=== PATIENT | male | born 1965 | race Caucasian/White ===

== ENCOUNTER 2019-10-03 08:52 | Observation (INO) ==
[2019-10-03] MEDS ORDERED: NS 1,000 ML IV PRN (09:09)
--- NOTE | 2019-10-03 09:33 | Diag Imaging Result Doc PS360 ---
EXAM: CHEST-PORTABLE 10/03/2019 HISTORY: stroke like symptoms TECHNIQUE: AP portable upright at 0916 COMMENT: There is no evidence of acute cardiac or pulmonary disease. There are no previous studies. IMPRESSION: No evidence of acute disease. Electronically signed by Floyd Saba 10/03/2019 9:31 AM
--- NOTE | 2019-10-03 09:36 | Diag Imaging Result Doc PS360 ---
EXAM: CT HEAD W/O CONTRAST 10/03/2019 HISTORY: stroke like symptoms TECHNIQUE: This exam was performed using automated exposure control, adjustment of mA or kV according to patient size, and/or use of iterative reconstruction technique. COMMENT: There is no evidence of mass effect, bleed, or abnormal extra-axial fluid collection. The calvarium is intact. The visualized paranasal sinuses are clear. There is a prominent cisterna magna. IMPRESSION: No evidence of acute intracranial disease. Electronically signed by Floyd Saba 10/03/2019 9:34 AM
--- NOTE | 2019-10-03 09:38 | EKG Report ---
Test Performed on : 10/03/2019 09:04:14 AM Test Reason : HIGH BP/NUMBNESS AND TINGLING Blood Pressure : / mmHG Vent. Rate : 058 BPM Atrial Rate : 058 BPM P-R Int : 144 ms QRS Dur : 080 ms QT Int : 396 ms P-R-T Axes : -09 006 020 degrees QTc Int : 388 ms Sinus bradycardia. Nonspecific T wave abnormality Abnormal ECG No previous ECGs available Unconfirmed Result
[2019-10-03] MEDS ORDERED: ASPIRIN PO ONE (09:41)
[2019-10-03] MEDS ORDERED: LABETALOL IV ONE (09:42)
[2019-10-03 09:53] LABS: URINE SOURCE CLEAN CATCH
[2019-10-03 09:56] LABS: BASO# 0.05 X1000 (0.0-0.2); BASO% 0.7 % (0.0-0.8); EOS# 0.07 X1000 (0.0-0.7); EOS% 0.9 % (0.0-10.0); HEMATOCRIT 44.3 % (42.0-52.0); HEMOGLOBIN 15.2 g/dL (14.0-18.0); LYMPH# 2.01 X1000 (1.2-3.4); LYMPH% 26.6 % (20.5-51.1); MCH 31.7 PG (27-31); MCHC 34.3 g/dL (33-37); MCV 92.3 FL (81-99); MONO# 0.36 X1000 (0.11-0.59); MONO% 4.8 % (1.7-9.3); MPV 10.3 FL (7.4-10.4); NEUT# 5.07 X1000 (1.4-6.5); PLT 221 X1000 (130-400); RDW 12.1 % (11.5-14.5); WBC 7.56 X1000 (4.8-10.8)
[2019-10-03 09:57] LABS: BILIRUBIN URINE NEGATIVE (NEGATIVE); BLOOD URINE NEGATIVE (NEGATIVE); COLOR YELLOW; GLUCOSE URINE NEGATIVE (NEGATIVE); KETONE URINE NEGATIVE (NEGATIVE); LEUKOCYTES URINE NEGATIVE (NEGATIVE); NITRITE URINE NEGATIVE (NEGATIVE); PROTEIN URINE NEGATIVE (NEGATIVE); SP GRAVITY URINE 1.014; TURBIDITY URINE CLEAR (CLEAR); UR EPITHELIAL CELLS <10 /HPF (<10); URINE BACTERIA NEGATIVE /HPF; URINE RBC <10 /HPF (<10); URINE WBC <10 /HPF (<10); UROBILINOGEN URINE NORMAL (NORMAL)
[2019-10-03 10:04] LABS: INR 0.85; PROTIME 11.7 Seconds (11.0-16.0)
[2019-10-03 10:24] LABS: AGAP 12; ALB/GLOB RATIO 2.6; ALBUMIN 4.6 g/dL (3.5-5.0); ALKALINE PHOSPHATASE 60 U/L (32-122); BUN 17 mg/dL (8-22); CALCIUM 9.1 mg/dL (8.8-10.2); CHLORIDE 103 mmol/L (98-107); COSMO 282; CREATININE 1.2 mg/dL (0.7-1.2); ESTIMATED GFR > 60; GLUCOSE 112 mg/dL (70-104); GOT 18 U/L (10-34); GPT 22 U/L (10-44); POTASSIUM 4.1 mmol/L (3.5-5.1); SODIUM 140 mmol/L (136-145); TCO2 25 mmol/L (25-35); TOTAL BILIRUBIN 0.56 mg/dL (0.20-1.00); TOTAL PROTEIN 6.4 g/dL (6.3-8.3)
[2019-10-03] MEDS ORDERED: CATAPRES PO ONE (10:37)
--- NOTE | 2019-10-03 11:02 | PROVIDER DOCUMENTATION ---
This chart was entered by Erna Vasques Scribe, acting as scribe for Rasheed Fang MD. HPI-Neurological Disorder - General Stated Complaint: HIGH BP Time Seen by Provider: 10/03/19 08:53 Source: patient Allergies/Adverse Reactions: Patient Allergies Allergy/AdvReac Type Severity Reaction Status Date / Time No Known Allergies Allergy Verified 04/09/19 06:59 Home Medications: Home Medication List Medication Instructions Recorded Confirmed Last Taken Type Losartan Potassium 1 tab PO DAILY 10/03/19 10/03/19 Unknown History - History of Present Illness-Neuro Nature of Presenting Problem: Patient is a 54 year old male who presents with stroke like symptoms. States having dizziness and weakness to RUE and RLE. Reports symptoms started 2 hours ago. States was informed by his PCP's office this morning that his blood pressu re was elevated. Denies chest pain and shortness of breath. Reports taking Lila yesterday. Severity: reports: mild Onset/Duration: reports: 1-3 hours ago (2 hours ago) Timing: reports: still present Context: reports: other (weakness) Character of Deficits: reports: new weakness New weakness or altered sensation location:: reports: RUE, RLE Associated Symptoms: reports: dizziness Similar Symptoms Previously?: No Recently seen or treated by another doctor?: Yes Review of Systems - Adult - REVIEW OF SYSTEMS - ADULT Constitutional: reports: no symptoms reported Eyes: reports: no symptoms reported Ears, Nose, Mouth & Throat: reports: no symptoms reported Cardiovascular: reports: no symptoms reported. denies: chest pain Respiratory: reports: no symptoms reported. denies: shortness of breath Gastrointestinal: reports: no symptoms reported Genitourinary: reports: no symptoms reported Musculoskeletal: reports: no symptoms reported Integumentary: reports: no symptoms reported Neurological: reports: see HPI, dizziness/vertigo (dizziness), other (weakness to RUE and RLE). denies: numbness Psychiatric: reports: no symptoms reported Endocrine: reports: no symptoms reported Hematologic/Lymphatic: reports: no symptoms reported Allergic/Immunologic: reports: no symptoms reported All Other Systems: Reviewed and Negative Past History - Adult - PAST MEDICAL HISTORY-ADULT Review of Records: reports: Old Records Reviewed, Nursing Assessment Review, Medications Reviewed, Social history reviewed & non-contributory. Major Childhood Illnesses: reports: denies history Cardiovascular: reports: HTN, hyperlipidemia Respiratory: reports: denies history Gastrointestinal: reports: denies history Obstetrical/Gynecological: reports: denies history Genitourinary: reports: kidney stones Musculoskeletal: reports: denies history Neurological: reports: denies history Endocrine/Immune: reports: denies history Other Conditions: reports: denies history - PRIOR SURGERIES/PROCEDURES Surgical/Procedure History: reports: reviewed, not pertinent, tonsillectomy, hernia repair, orthopedic (extremity) - IMMUNIZATION STATUS Childhood Immunizations: See Nurse Assessment Flu Vaccine: See Nurse Assessment - FAMILY HISTORY Family History: reviewed, not pertinent - SOCIAL HISTORY Smoking: denies Substance Use: denies Physical Exam- Neurological - Physical Exam-Neuro Initial Vital Signs Reviewed: Yes General Appearance: alert, no apparent distress. 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 negative: facial droop Integumentary: normal color, normal turgor, warm/dry. negative: diaphoresis, pallor Psych/Mental Status: normal mood/affect, normal thought content, normal thought process, oriented x 3. negative: tearful Progress - PLAN OF CARE/RESULTS Progress/Plan/Lab Results: Vital Signs - 8 hr 10/03/19 09:14 10/03/19 10:01 10/03/19 10:35 Temperature 98.2 F Pulse Rate 62 65 57 L Respiratory Rate 16 17 19 Blood Pressure 204/99 202/86 221/112 O2 Sat by Pulse Oximetry 98 97 97 Laboratory Results - last 24 hr 10/03/19 10/03/19 10/03/19 09:41 09:42 09:45 WBC RBC Hgb Hct MCV MCH MCHC RDW Std Deviation Plt Count MPV Immature Gran % (Auto) Neut % (Auto) Lymph % (Auto) [place] % (Auto) Eos % (Auto) Baso % (Auto) Immature Gran # (Auto) Neut # (Auto) Lymph # (Auto) [place] # (Auto) Eos # (Auto) Baso # (Auto) PT INR PTT (Actin FS) Sodium 140 Potassium 4.1 Chloride 103 Carbon Dioxide 25 Anion Gap 12 BUN 17 Creatinine 1.2 Estimated GFR/1.73 m2 > 60 BUN/Creatinine Ratio 14 Glucose 112 H POC Glucose 101 Calculated Osmolality 282 Calcium 9.1 Total Bilirubin 0.56 AST 18 ALT 22 Alkaline Phosphatase 60 Troponin T High Sens Total Protein 6.4 Albumin 4.6 Globulin 1.8 Albumin/Globulin Ratio 2.6 Urine Source CLEAN CATCH Urine Color YELLOW Urine Turbidity CLEAR Urine pH 6.0 Ur Specific [place] 1.014 Urine Protein NEGATIVE Ur Glucose (Stick) NEGATIVE Ur Ketones (Stick) NEGATIVE Urine Blood NEGATIVE Urine Nitrite NEGATIVE Urine Bilirubin NEGATIVE Urobilinogen Dipstick NORMAL Urine Leukocytes NEGATIVE Urine WBC (Auto) <10 Urine RBC (Auto) <10 U Epithel Cells (Auto) <10 Urine Bacteria (Auto) NEGATIVE 10/03/19 10/03/19 10/03/19 09:45 09:45 09:45 WBC 7.56 RBC 4.80 Hgb 15.2 Hct 44.3 MCV 92.3 MCH 31.7 H MCHC 34.3 RDW Std Deviation 12.1 Plt Count 221 MPV 10.3 Immature Gran % (Auto) 0.0 Neut % (Auto) 67.0 Lymph % (Auto) 26.6 [place] % (Auto) 4.8 Eos % (Auto) 0.9 Baso % (Auto) 0.7 Immature Gran # (Auto) 0.00 Neut # (Auto) 5.07 Lymph # (Auto) 2.01 [place] # (Auto) 0.36 Eos # (Auto) 0.07 Baso # (Auto) 0.05 PT 11.7 INR 0.85 PTT (Actin FS) 29.0 Sodium Potassium Chloride Carbon Dioxide Anion Gap BUN Creatinine Estimated GFR/1.73 m2 BUN/Creatinine Ratio Glucose POC Glucose Calculated Osmolality Calcium Total Bilirubin AST ALT Alkaline Phosphatase Troponin T High Sens 9 Total Protein Albumin Globulin Albumin/Globulin Ratio Urine Source Urine Color Urine Turbidity Urine pH Ur Specific [place] Urine Protein Ur Glucose (Stick) Ur Ketones (Stick) Urine Blood Urine Nitrite Urine Bilirubin Urobilinogen Dipstick Urine Leukocytes Urine WBC (Auto) Urine RBC (Auto) U Epithel Cells (Auto) Urine Bacteria (Auto) Orders Category Date Time Status Admit - [facility] Routine AdmDCTranf 10/03/19 10:56 Active Call Admitting on Arrival AT ADMISSION Care 10/03/19 10:56 Active Cardiac Monitoring DIRECTED Care 10/03/19 09:09 Active Finger Stick Blood Sugar (ED) DIRECTED Care 10/03/19 09:09 Active Misc. NRSG Communication Order DIRECTED Care 10/03/19 09:09 Active Nursing- MD Consult Request NOW Care 10/03/19 10:55 Active Saline Loc NOW Care 10/03/19 09:09 Active Z-Document. for Tele Applied ORDERED Care 10/03/19 10:57 Active CHEST-PORTABLE [RAD] Stat Exams 10/03/19 09:[address] HEAD W/O CONTRAST [CT] Stat Exams 10/03/19 09:09 Completed CBC WITH ELECTRONIC DIFF [HEME] Stat Lab 10/03/19 09:45 Completed COMPREHENSIVE METABOLIC PANEL [CHEM] Stat Lab 10/03/19 09:45 Completed PROTIME WITH INR [COAG] Stat Lab 10/03/19 09:45 Completed PTT [COAG] Stat Lab 10/03/19 09:45 Completed TROPONIN T HIGH SENSITIVITY Stat Lab 10/03/19 09:45 Completed URINALYSIS W/POSS RFLX CULT [URINALYSIS] Stat Lab 10/03/19 09:41 Completed URINE DRUG SCREEN Stat Lab 10/03/19 09:41 Received 0.9% Sodium Chloride Inj [Ns] 1,000 ml Med 10/03/19 09:09 Active IV 100 mls/hr Aspirin Med 10/03/19 09:41 Discontinued 325 mg PO NOW ONE Clonidine [Catapres] Med 10/03/19 10:37 Discontinued 0.2 mg PO NOW ONE Labetalol Med 10/03/19 09:42 Discontinued 20 mg IV NOW ONE Telemetry [OM.EQ] Routine Oth 10/03/19 10:56 Active EKG [EKG] Stat Ther 10/03/19 09:02 Draft Transfer/Admit Order [TRANSFER] Routine Transfer 10/03/19 10:57 Ordered Result Diagrams: 10/03/19 09:45 10/03/19 09:45 - EKG 1 Time of EKG reading by physician:: 09:04 EKG Read and Signed by:: Rasheed Fang EKG Interpretation (*Must complete 3 of following elements*): Abnormal Rate: 58 Rhythm: sinus bradycardia [place]: normal VT Interval: normal Comments: nonspecific T wave abnormality. - XRAY 1 XRAY Study: Chest Impression: See EMR Report (EXAM: CHEST-PORTABLE 10/03/2019 HISTORY: stroke like symptoms TECHNIQUE: AP portable upright at 0916 COMMENT: There is no evidence of acute cardiac or pulmonary disease. There are no previous studies. IMPRESSION: No evidence of acute disease. Electronically signed by Floyd Saba 10/03/2019 9:31 AM 10/03/19 0931 Interpreting Physician: Floyd Saba MD Dictated Date/Time: 10/03/19 0930 cc: Rasheed Fang MD; Lucho Aguilar MD) - CT/MRI 1 CT Study: Head Impression: See EMR Report ( EXAM: CT HEAD W/O CONTRAST 10/03/2019 HISTORY: stroke like symptoms TECHNIQUE: This exam was performed using automated exposure control, adjustment of mA or kV according to patient size, and/or use of iterative reconstruction technique. COMMENT: There is no evidence of mass effect, bleed, or abnormal extra-axial fluid collection. The calvarium is intact. The visualized paranasal sinuses are clear. There is a prominent cisterna magna. IMPRESSION: No evidence of acute intracranial disease. Electronically signed by Floyd Saba 10/03/2019 9:34 AM 10/03/19 0934 Interpreting Physician: Floyd Saba MD Dictated Date/Time: 10/03/19 0933 cc: Rasheed Fang MD; Lucho Aguilar MD) - CONSULTS/PCP/HOSPITALIST Notification #1 *Consult/PCP/Hospitalist*: Dr. Aguilar paged at [phone] Time Discussed: 10:52 Reason/Comments: Dr. Fang consulted with Dr. Aguilar about patient. Consult Disposition: Will see in ED, Admit Departure - Departure Date of Disposition Decision: 10/03/19 Time of Disposition Decision: 10:26 DIAGNOSIS: CVA (cerebral vascular accident), Uncontrolled hypertension Disposition: ADMITTED INPATIENT 09 Certified Medical Emergency: Emergent Condition: Stable Referrals and Follow-Ups: Lucho Aguilar MD [Primary Care Provider] - - Critical Care Note This patient required my direct & personal management of CC.: Yes Total Time (mins): 45 Critical Care Statement: This patient required my direct personal management to treat or rule out processes, the absence of which, could potentiallly result in sudden, clinically significant life or limb threatening deterioration. Attestation - Physician/ BENSON Attestation Patient care was provided by Advanced Practice Provider:: No The physician spent face to face time with patient:: Yes Advanced Practice Provider documentation review:: Supervising physician onsite and consulted in the evaluation and care of this patient. The physician did have a face to face encounter with the patient. - NIH Stroke Scale Level of Consciousness: 0-Alert LOC Questions (ask month and age): 0-Answers Both Correctly LOC Commands (ask to open & close eyes;make a fist, let go): 0-Obeys Both Correctly Best Gaze (horizontal eye movement): 0-Normal Visual (use finger movement, counting or visual threat): 0-No Visual Loss Facial Palsy (show teeth or raise eyebrows & close eyes tght: 0-Symmetrical Movement Motor Function-left arm: 0-Normal Motor Function-right arm: 0-Normal Motor Function-left le-Normal Motor Function-right le-Normal Limb Ataxia([id number], or heel to olmedo): 0-No Ataxia Sensory(pin prick to face,arms,trunk,legs-compare side/side): 0-No Ataxia Best Language(name item/read sentence.Ex-Down to Earth): 0-No Aphasia Dysarthria(Pt read words or say words Ex.Mama,Tip-Top,Thanks: 0-Normal Articulation Extinction and Inattention: 0-Normal Stroke tPA Guidelines - Exclusion Criteria for IV tPA Repeated systolic Blood Pressure >185 or Diastolic >110: Yes (NOT CANDIDATE FOR TPA DUE TO NIH=O AND UNCONTROLLED BP. DISCUSSED WITH DR AGUILAR) This chart was documented by the indicated scribe, (Erna Vasques Scribe) and accurately reflects the services I performed and decisions made by me, Rasheed Fang MD, as attested by the provider's signature.
[2019-10-03 11:08] LABS: UR AMPHETAMINES QUAL NONE DETECTED (NONE DETECT); UR BARBITUATES QUAL NONE DETECTED (NONE DETECT); UR BENZODIAZEPIN QUAL NONE DETECTED (NONE DETECT); UR CANNABINOIDS QUAL NONE DETECTED (NONE DETECT); UR COCAINE QUAL NONE DETECTED (NONE DETECT); UR METHADONE QUAL NONE DETECTED (NONE DETECT); UR OPIATES QUAL NONE DETECTED (NONE DETECT); UR OXYCODONE QUAL NONE DETECTED (NONE DETECT); UR PCP QUAL NONE DETECTED (NONE DETECT)
--- NOTE | 2019-10-03 14:56 | NEUROLOGY CONSULTATION ---
DATE: 10/03/2019 Mr. Ramirez is 54 years old and there is question of stroke. History from the patient is that he noticed some dizziness and unsteady gait late in the day yesterday. At one point, he noticed clumsiness in the right arm more than other limbs. There may have been transient slurred speech. This morning, in the shower, he noticed unsteadiness to be more prominent in the right limbs. Gait continued unsteady. He presented for evaluation. He was found to have elevated blood pressure and came to the hospital. He had some headache 2 days ago but no headache yesterday or today. He had some dizziness but never definite lightheadedness, altered awareness or collapse. There was no memory gap. He did not have trouble understanding what was said to him. He had spent a good bit of the weekend with intense numerical calculations and did not have problems with that. There is not history of prior stroke. He reports being told that imaging showed evidence of prior head injury, but he is not aware of any serious head injury. There is past history of hypertension, dyslipidemia. He had stopped taking his statin drug within the last several months, possibly longer. He reports he was continuing losartan as prescribed. He had taken aspirin occasionally but not regularly. He does not smoke cigarettes. Workup here includes noncontrast CT of the head showing nothing remarkable. Lab showed nothing remarkable on chemistry. We do not have lipid profile this admission, but he believes that was done in his primary physician's office not too many months ago. He was afebrile. Heart rate was stable, 50s-60s. Systolic blood pressures were initially 200s-220s, recently 150s-160s. On exam, he is awake, alert, attentive, appropriate, oriented. Speech is slightly dysarthric but easily understood. There is no language deficit on careful bedside testing of reading, repeating, naming, fluency. I did not test handwriting. Recent and remote memory are good. Head and neck are unremarkable. Visual vásquez are full to confrontational finger counting. Extraocular movements are full. The right nasolabial fold is slightly less prominent than the left but there is good motility bilaterally. Gag is intact. Tongue is midline. He reports equal pinprick appreciation over the forehead and chin on the left and right. He can hear. Shoulder shrug is equal. Strength is normal in the left limbs. On the right, I can overcome the deltoid grading 4/5, wrist extensors 4+/5, iliopsoas 4/5. Tone is increased in the right arm more than the right leg. He did rapid alternating movements better with the left hand than the right. I did not test his gait. Proprioception is good at the right great toe MTP joint. He reports diminished pinprick appreciation over the right hand. He reports equal pinprick appreciation over the right and left leg. IMPRESSION: Minimal right hemiparesis, slight right dystaxia, slight right- sided sensory deficit, all involving arm more than leg, dysarthria without dysphasia or vision deficit. 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 He reports being left-handed so lack of language deficit is of uncertain significance. The improvement associated with control of blood pressure raises possibility that this was transient neurologic deficit related to elevated blood pressure. We might consider brain MRI in order to be more definite. Carotid ultrasound and echocardiogram would be reasonable, and, in light of his age, if there are no findings on these studies, CT angiogram would be reasonable. I would continue treating blood pressure cautiously trying not to bring down systolics rapidly. I would continue daily aspirin, resume statin, treat blood sugar aggressively if that becomes elevated. I do not have any other suggestion from Neurology standpoint right now. Further plans will depend on his clinical course. Thanks for asking us to see Mr. Ramirez. If he is discharged soon, I will be glad to follow up with him to review results of workup as an outpatient. cc: MD Lucho White III, MD MTDD
[2019-10-03] MEDS ORDERED: NORVASC PO ONE (16:46)
[2019-10-03] MEDS ORDERED: TYLENOL PO PRN (16:46)
[2019-10-03] MEDS ORDERED: NS 1,000 ML IV SCH (18:45)
[2019-10-03] MEDS ORDERED: CRESTOR PO SCH (18:45)
[2019-10-03] MEDS ORDERED: CATAPRES PO PRN (19:01)
--- NOTE | 2019-10-03 19:43 | HISTORY AND PHYSICAL ---
PRIMARY CARE PHYSICIAN: Lucho Parsons MD. CHIEF COMPLAINT: Right-sided weakness. HISTORY OF PRESENT ILLNESS: A 54-year-old, white male with past medical history significant for hypertension, hypertriglyceridemia, history of an arachnoid cyst, hyperlipidemia and impaired fasting glucose presents for evaluation of above-mentioned symptoms. Current history of present illness began yesterday. Patient states upon waking he noted pruritic eyes. He attributed this to allergies. The patient states he took an Lila. 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 At that time, patient states he began "feeling weird." He noted unsteadiness about his feet. The patient attributed this to taking the Lila. The patient drove home from [place], [place] without incident. Upon arrival home, patient states he was quite fatigued and took a nap. The patient states upon waking he felt somewhat improved, although not back to baseline. He ate supper and returned to bed and slept well overnight. Upon waking this morning, patient stated he felt "wobbly." He attributed this to just waking. With walking, however, he was noted to favor his right foot and leg. The patient states he took a shower and noted his right arm to "move slower than the left." He states upon lifting his leg, he was unable to lift as high as he normally does to place on a stool. Because of these findings, patient dressed and drove himself immediately to my office. He arrived prior to my arrival at office. My office staff met him, and a blood pressure was drawn. Blood pressure returned in the 220/over 110 range. My staff contacted me and patient was sent to the emergency department immediately. Upon arrival, patient's blood pressure again was noted to be grossly elevated at 204/99. Evaluation revealed mild right-sided deficits. Full evaluation was pursued. CT scan was performed, which revealed no evidence of acute abnormality. A dose of labetalol followed by clonidine was provided. Ultimately, blood pressure improved. I was contacted for admission. Preliminary admission orders were made. Dr. Roberts with neurology was consulted. Dr. Roberts agreed that this likely represented acute ischemic left hemispheric infarction. Further neurologic evaluation including MRI, echocardiogram, and carotid Dopplers were recommended. Upon my arrival, patient was sitting upright in a chair. Overall, he notes improvement, although not back to his baseline. He denies fevers, chills, nausea, vomiting, shortness of breath or chest discomfort. He admits to missing multiple doses of his medications recently. He does not monitor his blood pressure closely. PAST MEDICAL HISTORY: 1. Abnormal skin examination with multiple brown nevi. 2. Hypertension. 3. Hypertriglyceridemia. 4. Family history of colon cancer. 5. History of headaches in 2016 with MRI revealing an arachnoid cyst. Evaluation by Dr. Parada suggested no need for neurosurgical intervention. 6. History of bilateral hearing loss. 7. Hyperlipidemia. 8. Impaired fasting glucose. 9. Nephrolithiasis. 10. Mild to moderate obesity. 11. Family history of ischemic heart disease. CURRENT MEDICATIONS: 1. Amlodipine 5 mg twice daily (the patient has not taken in quite some time). 2. Crestor 20 mg at bedtime (patient is not currently taking). 3. Losartan 100 mg daily. ALLERGIES: The patient states he is allergic to Lipitor, which causes myalgias and simvastatin, which is ineffective. SOCIAL HISTORY: Patient denies tobacco and illicit drug use. He occasionally uses alcohol. He works in the [employer] industry. He enjoys hunting, fishing and golf. He exercises by walking 3 times per week for 40 minutes. FAMILY HISTORY: Patient's father is age 75 and has a history of colon cancer, colitis, and coronary artery disease. Patient's mother is age 71 and has a history of hypertension. REVIEW OF SYSTEMS: A 12-point review of systems was performed. Pertinent positives and negatives were noted in history of present illness. PHYSICAL EXAMINATION: VITAL SIGNS: Temperature 98.4 degrees, heart rate 56, respirations 12, blood pressure is 179/85. GENERAL: Well nourished, well developed, no acute distress. HEENT: Normocephalic, atraumatic. Pupils equal, round, reactive to light. Extraocular muscles intact. Sclerae anicteric. [place] conjunctivae. Oral and nasopharynx clear without exudate. NECK: Supple. No lymphadenopathy. No thyromegaly. No bruits auscultated. CARDIOVASCULAR: Regular rate and rhythm. No significant murmurs, rubs, or gallops. PULMONARY: Clear to auscultation bilaterally. ABDOMEN: Soft, nontender, nondistended. Positive bowel sounds. EXTREMITIES: Moves all extremities well. No significant clubbing, cyanosis, or edema. NEUROLOGIC EXAMINATION: Cranial nerves 2 through 12 grossly intact. Motor and sensory grossly intact. PSYCHOLOGIC: Patient is slightly slow with answering questions. Psychologic examination is appropriate. LABORATORY DATA: White blood cell count 7.56, hemoglobin 15.3, hematocrit 44.3, platelet count 221,000, PT 11.7, INR 0.85, PTT 29.0. Sodium 140, potassium 4.1, chloride 103, bicarb 25, BUN 17, creatinine 1.2, glucose 112, calcium 9.1, total bilirubin 0.56, total protein 6.4, albumin 4.6, alkaline phosphatase 60, AST 18, ALT 22. Urinalysis negative. Urine drug screen negative. IMAGING: Chest x-ray returned with no acute disease. CT scan of the head returned with no evidence of acute intracranial disease. ASSESSMENT AND PLAN: A 54-year-old white male with past medical history as noted presents for evaluation of right-sided deficit as described above. Upon my arrival, patient's motor deficits appear to be essentially resolved. He is, however, having some difficulty with slow mentation. Patient's family is interested in transfer to a higher center with possible neurosurgical intervention should this become necessary. These arrangements will be made. 1. Admit to PVC unit. 2. Probable acute ischemic left hemispheric infarction--Patient's risk factors include uncontrolled hypertension, hyperlipidemia, impaired fasting glucose, and family history of cardiovascular disease. The patient's blood pressure will be managed with a goal of systolic blood pressure approximately 160 for now. We will anticipate titrating down on blood pressure with time. We will continue IV fluids at 100 mL an hour. We will resume Crestor therapy. Transfer will be arranged. If this is able, we will plan echocardiogram, MRI of the brain, and carotid Dopplers in the morning. Overall, patient's symptoms appear to be improving. Patient will likely require aspirin therapy prior to discharge. 3. Hypertensive urgency/emergency--This certainly could be transient neurological deficit associated with a grossly elevated blood pressure. The patient has been started on amlodipine 5 mg twice daily with goal systolic blood pressure of 150 to 160. We will resume losartan therapy if necessary. We will provide clonidine as needed. Importance of medication compliance has been discussed with patient. 4. Hyperlipidemia--The patient's Crestor will be resumed. We will follow this. 5. Impaired fasting glucose--The patient's glucose this morning was 112. We will remain aware. 6. History of an arachnoid cyst--This was diagnosed per MRI in 2016. This likely is noncontributory. We will remain aware. 7. Fluid, electrolytes, nutrition--We will monitor electrolytes. Normal saline at 100 mL an hour. Cardiac diet, prophylaxis. The patient will be placed on SCDs. cc: Lucho Parsons MD
[2019-10-03] MEDS ORDERED: NORVASC PO SCH ×3 (21:00)
--- NOTE | 2019-10-03 21:33 | DISCHARGE SUMMARY ---
ADMISSION DATE: 10/03/2019 DISCHARGE DATE: 10/03/2019 ADMISSION DIAGNOSIS: Right-sided weakness. DISCHARGE DIAGNOSES: 1. Presumed acute ischemic left hemispheric infarct. 2. Hypertensive urgency/emergency. 3. Hyperlipidemia, present on arrival. 4. Impaired fasting glucose, present on arrival. 5. History of an arachnoid cyst, present on arrival. CONSULTATIONS: Dr. Roberts with neurology was consulted for further evaluation and management of presumed stroke. PROCEDURES: 1. CT scan of the head was performed on , which revealed no evidence of acute intracranial disease. 2. Chest x-ray was performed on 10/03/2019, which revealed no evidence of acute disease. HISTORY AND PHYSICAL EXAMINATION: See admit note. PHYSICAL EXAMINATION PRIOR TO DISCHARGE: Vital signs: Temperature 97.4 degrees, heart rate 60, respirations 17, blood pressure is 158/77. General: Well nourished, well developed, no acute distress. Cardiovascular: Regular rate and rhythm. No significant murmurs, rubs, or gallops. Pulmonary: Clear to auscultation bilaterally. Abdomen: Soft, nontender, nondistended. Positive bowel sounds. Extremities: Moves all extremities well. No significant clubbing, cyanosis, or edema. Dermatologic: Evaluation reveals no evidence of rash. Neurologic: Examination reveals a slight slowing to response, no significant motor or sensory deficits. LABORATORY DATA PRIOR TO DISCHARGE: Same as admission. HOSPITAL COURSE: Patient was admitted as per history and physical examination. Hospital course per condition is as follows. 1. Probable acute ischemic left hemispheric infarction--Upon admission, patient was noted to have mild right-sided deficits as described. CT scan returned negative. I discussed this in detail with patient and with patient's family. Because of a possible need for 24-hour neurologic/neurosurgical coverage, they requested transfer to [facility]. Transfer was arranged through the [facility]. The patient will be transferred immediately for further evaluation and management. 2. Hypertensive urgency/hypertensive emergency--The patient was provided labetalol and clonidine while in the emergency department. Upon arrival to the floor, blood pressure again spiked, and 5 mg of Norvasc was provided. Blood pressure at present time is elevated but more manageable. Patient will be discharged with orders to be determined by blood pressure upon arrival. Of note, patient has been prescribed amlodipine 5 mg twice daily and losartan 100 mg daily. He is not currently taking either of these routinely. 3. Hyperlipidemia--Patient's Crestor was resumed. It does not appear that he has been taking this as an outpatient. 4. Impaired fasting glucose--This is historical. Fasting glucose upon arrival was 112. We will follow this as an outpatient. 5. History of a arachnoid cyst. The patient was diagnosed per MRI in 2016. I suspect this is noncontributory. We will remain aware. DISCHARGE CONDITION: Stable. DISPOSITION: Discharged to [facility]. MEDICATIONS: 1. Crestor 20 mg daily. 2. Acetaminophen 650 mg every 6 hours as needed. 3. Losartan 100 mg daily. 4. Amlodipine 5 mg twice daily will be resumed per [facility]'s Neurology discretion. FOLLOWUP: Patient is to follow up with me in approximately 1 to 2 weeks. cc: Lucho Parsons MD
[2019-10-03 22:15] VITALS: BP 163/87
== END 2019-10-03 22:20 | disposition short-term general hospital (02) | DRG 65 ==
LOC: ED 08:52 → 2N 08:53 → INTOOBSV 08:53
PROVIDERS: ADMIT Internal Medicine; ATTEND Internal Medicine